=== PATIENT | female | born 1975 | race African-American/Black ===

== ENCOUNTER 2019-01-06 16:45 | Emergency (ER) | payer SELFPAY ==
[2019-01-06 16:55] VITALS: Wt 86.4 kg
[2019-01-06] MEDS ORDERED: GABAPENTIN100 MG PO (16:56)
[2019-01-06 17:40] LABS: CALC OSMOLALITY 286 mosm/kg (275-300); CALCIUM 8.9 mg/dL (8.5-10.1); CHLORIDE - SERUM 106 mmol/L (98-107); CREATININE - SERUM 1.1 mg/dL (0.6-1.3); GLUCOSE 103 mg/dL (74-106); POTASSIUM - SERUM 3.9 mmol/L (3.5-5.1); SODIUM 144 mmol/L (136-145); UREA NITROGEN 13 mg/dL (7-18); eGFR NON AFRICAN AMERICAN 57 mL/min (90-120)
[2019-01-06 17:55] LABS: ALBUMIN 3.7 g/dL (3.4-5.0); ALKALINE PHOSPHATASE 83 U/L (46-116); ALT (SGPT) 27 U/L (10-68); CKMB 0.4 U/L (0.0-3.6); CREATINE KINASE 155 UL (21-215); MAGNESIUM - SERUM 2.2 mg/dL (1.8-2.4)
[2019-01-06 17:56] LABS: TROPONIN-I < 0.017 ng/mL (0.000-0.060)
[2019-01-06 18:10] LABS: INR 0.95 (0.85-1.17); PROTIME 12.2 SECONDS (11.6-15.0)
[2019-01-06 18:13] LABS: BASOPHILS 0.2 % (0-2); EOSINOPHILS 0.3 % (0-7); HEMATOCRIT 42.5 % (36.0-48.0); HEMOGLOBIN 12.7 g/dL (12-16); IMMATURE GRANULOCYTES 0.2 % (0-5); LYMPHOCYTES 23.5 % (15-50); MCH 24.1 pg (26.0-34.0); MCHC 29.9 g/dL (31.0-37.0); MCV 80.5 fL (80.0-100.0); MONOCYTES 5.9 % (2-11); NEUTROPHILS 69.9 % (40-80); PLATELET COUNT 488 10x3/uL (130-400); RBC 5.28 10x6/uL (4.00-5.40); RDW 17.4 % (11.5-14.5); WBC 13.2 10x3/uL (4.8-10.8)
[2019-01-06] MEDS ORDERED: ZPAK PO (18:46)
[2019-01-06] MEDS ORDERED: ALBUTEROL SULF8.5 GM INH (18:46)
[2019-01-06 19:07] VITALS: BP 132/88
== END 2019-01-06 19:07 | disposition home or self-care (01) ==
LOC: D.ER 16:45
PROVIDERS: Family Medicine
DX: J40 Bronchitis, not specified as acute or chronic (principal)